=== PATIENT | female | born 1935 | race Caucasian/White ===

== ENCOUNTER 2021-04-21 18:05 | Observation (INO) | payer MEDICARE, OTHER ==
--- NOTE | 2021-04-21 18:35 | ED ---
General Adult HPI - General Chief complaint: Nausea/Vomiting/Diarrhea Stated complaint: Vomiting Time Seen by Provider: 04/21/21 18:18 Source: patient, EMS Mode of arrival: EMS Limitations: no limitations - History of Present Illness Initial comments: Dictation was produced using [employer] dictation software. please excuse any grammatical, word or spelling errors. Chief Complaint: 85-year-old female presents to the emergency department for weakness and altered mental status History of Present Illness: 85-year-old female she is a poor historian. She denies any medical history. She is brought here after being found at home feeling weak and sitting in her urine and stool. Patient states she's been vomiting since last night. She states she had a fever. EMS was called patient's parents emergency department. Patient has no complaints at the bedside currently. She denies any fever. She denies any pain. The ROS documented in this emergency department record has been reviewed and confirmed by me. Those systems with pertinent positive or negative responses have been documented in the HPI. All other systems are other negative and/or noncontributory. PHYSICAL EXAM: General Impression: Alert and oriented x3, not in acute distress HEENT: Normocephalic atraumatic, extra-ocular movements intact, pupils equal and reactive to light bilaterally, mucous membranes moist. Cardiovascular: Heart regular rate and rhythm Chest: Able to complete full sentences, no retractions, no tachypnea Abdomen: abdomen soft, non-tender, non-distended, no organomegaly Musculoskeletal: Pulses present and equal in all extremities, no peripheral edema Motor: no focal deficits noted Neurological: CN II-XII grossly intact, no focal motor or sensory deficits noted Skin: Intact with no visualized rashes Psych: Normal affect and mood ED course: 85-year-old female presents to the emergency department for altered mental status and fatigue. Patient reports she had a fever last night but feels fine at bedside. According to EMS family reports the patient is not acting right. Vital signs upon arrival are within acceptable limits. Patient has no focal neurologic deficits. She does appear to be encephalopathic. Slow answer questions. We do not know what patient's baseline mentation is at the moment. Laboratory evaluation obtained. CBC shows mild leukocytosis. Coag panel is unremarkable. Metabolic panel shows findings within acceptable limits. Magnesium slightly depressed at 1.5. Patient given oral magnesium oxide test. Urinalysis positive for nitrates. 2 white blood cells. COVID-19 is negative. Computed tomography scan of the brain is unremarkable. Patient treated 1 g of ceftriaxone. Patient exhibiting bizarre behavior is unclear what patient's baseline mentation is. We tried to get all the family however were unsuccessful. Phone number left and patient's chart was not answered. We tried to track down patient's son but unable to find his phone number. Today we'll have the disposition for this patient will have patient admitted to observation. Patient be admitted to [facility]. - Related Data Home Medications Medication Instructions Recorded Confirmed Cholecalciferol [Vitamin D3 (25 50 mcg PO DAILY 04/21/21 04/21/21 Mcg = 1000 Iu)] Cyanocobalamin [Vitamin B-12] 500 mcg PO DAILY 04/21/21 04/21/21 Allergies Allergy/AdvReac Type Severity Reaction Status Date / Time No Known Allergies Allergy Verified 04/21/21 18:58 Review of Systems ROS Statement: Those systems with pertinent positive or pertinent negative responses have been documented in the HPI. ROS Other: All systems not noted in ROS Statement are negative. Past Medical History Past Medical History: No Reported History History of Any Multi-Drug Resistant Organisms: None Reported Past Surgical History: Orthopedic Surgery Past Psychological History: No Psychological Hx Reported Past Alcohol Use History: None Reported Past Drug Use History: None Reported General Exam Limitations: no limitations Course Vital Signs 04/21/21 04/21/21 18:19 19:45 Temperature 96.9 F L Pulse Rate 89 86 Respiratory 18 18 Rate Blood Pressure 194/81 170/75 O2 Sat by Pulse 95 96 Oximetry Medical Decision Making - Lab Data Result diagrams: 04/21/21 18:40 04/21/21 18:40 Lab Results 04/21/21 04/21/21 04/21/21 Range/Units 18:40 18:40 18:40 WBC 13.3 H (3.8-10.6) k/uL RBC 4.54 (3.80-5.40) m/uL Hgb 14.4 (11.4-16.0) gm/dL Hct 43.1 (34.0-46.0) % MCV 95.1 (80.0-100.0) fL MCH 31.9 (25.0-35.0) pg MCHC 33.5 (31.0-37.0) g/dL RDW 12.8 (11.5-15.5) % Plt Count 246 (150-450) k/uL MPV 8.0 Neutrophils % 92 % Lymphocytes % 2 % Monocytes % 4 % Eosinophils % 1 % Basophils % 1 % Neutrophils # 12.2 H (1.3-7.7) k/uL Lymphocytes # 0.3 L (1.0-4.8) k/uL Monocytes # 0.5 (0-1.0) k/uL Eosinophils # 0.1 (0-0.7) k/uL Basophils # 0.1 (0-0.2) k/uL PT 9.7 (9.0-12.0) sec INR 0.9 (<1.2) APTT 22.4 (22.0-30.0) sec Sodium 135 L (137-145) mmol/L Potassium 4.8 (3.5-5.1) mmol/L Chloride 96 L (98-107) mmol/L Carbon Dioxide 26 (22-30) mmol/L Anion Gap 13 mmol/L BUN 22 H (7-17) mg/dL Creatinine 1.04 (0.52-1.04) mg/dL Est GFR (CKD-EPI)AfAm 57 (>60 ml/min/1.73 sqM) Est GFR (CKD-EPI)NonAf 49 (>60 ml/min/1.73 sqM) Glucose 151 H (74-99) mg/dL Plasma Lactic Acid Ryne (0.7-2.0) mmol/L Calcium 9.8 (8.4-10.2) mg/dL Magnesium 1.5 L (1.6-2.3) mg/dL Total Bilirubin 0.8 (0.2-1.3) mg/dL AST 23 (14-36) U/L ALT 13 (4-34) U/L Alkaline Phosphatase 92 (38-126) U/L Total Protein 8.7 H (6.3-8.2) g/dL Albumin 4.7 (3.5-5.0) g/dL Urine Color Urine Appearance (Clear) Urine pH (5.0-8.0) Ur Specific [place] (1.001-1.035) Urine Protein (Negative) Urine Glucose (UA) (Negative) Urine Ketones (Negative) Urine Blood (Negative) Urine Nitrite (Negative) Urine Bilirubin (Negative) Urine Urobilinogen (<2.0) mg/dL Ur Leukocyte Esterase (Negative) Urine RBC (0-5) /hpf Urine WBC (0-5) /hpf Amorphous Sediment (None) /hpf Urine Bacteria (None) /hpf Urine Mucus (None) /hpf Coronavirus (PCR) (Not Detectd) 04/21/21 04/21/21 04/21/21 Range/Units 18:40 18:40 19:32 WBC (3.8-10.6) k/uL RBC (3.80-5.40) m/uL Hgb (11.4-16.0) gm/dL Hct (34.0-46.0) % MCV (80.0-100.0) fL MCH (25.0-35.0) pg MCHC (31.0-37.0) g/dL RDW (11.5-15.5) % Plt Count (150-450) k/uL MPV Neutrophils % % Lymphocytes % % Monocytes % % Eosinophils % % Basophils % % Neutrophils # (1.3-7.7) k/uL Lymphocytes # (1.0-4.8) k/uL Monocytes # (0-1.0) k/uL Eosinophils # (0-0.7) k/uL Basophils # (0-0.2) k/uL PT (9.0-12.0) sec INR (<1.2) APTT (22.0-30.0) sec Sodium (137-145) mmol/L Potassium (3.5-5.1) mmol/L Chloride (98-107) mmol/L Carbon Dioxide (22-30) mmol/L Anion Gap mmol/L BUN (7-17) mg/dL Creatinine (0.52-1.04) mg/dL Est GFR (CKD-EPI)AfAm (>60 ml/min/1.73 sqM) Est GFR (CKD-EPI)NonAf (>60 ml/min/1.73 sqM) Glucose (74-99) mg/dL Plasma Lactic Acid Ryne 1.3 (0.7-2.0) mmol/L Calcium (8.4-10.2) mg/dL Magnesium (1.6-2.3) mg/dL Total Bilirubin (0.2-1.3) mg/dL AST (14-36) U/L ALT (4-34) U/L Alkaline Phosphatase (38-126) U/L Total Protein (6.3-8.2) g/dL Albumin (3.5-5.0) g/dL Urine Color Yellow Urine Appearance Clear (Clear) Urine pH 6.5 (5.0-8.0) Ur Specific [place] 1.014 (1.001-1.035) Urine Protein 1+ H (Negative) Urine Glucose (UA) Negative (Negative) Urine Ketones Negative (Negative) Urine Blood Small H (Negative) Urine Nitrite Positive H (Negative) Urine Bilirubin Negative (Negative) Urine Urobilinogen <2.0 (<2.0) mg/dL Ur Leukocyte Esterase Negative (Negative) Urine RBC 6 H (0-5) /hpf Urine WBC 2 (0-5) /hpf Amorphous Sediment Rare H (None) /hpf Urine Bacteria Many H (None) /hpf Urine Mucus Rare H (None) /hpf Coronavirus (PCR) Not Detected (Not Detectd) Disposition Clinical Impression: UTI (urinary tract infection), Encephalopathy Disposition: ADMITTED IP TO THIS [facility] Condition: Fair Referrals: None,Stated [Primary Care Provider] - 1-2 days
[2021-04-21 19:00] LABS: Basophils # (A) 0.1 k/uL (0-0.2); Basophils % (A) 1 %; Eosinophils # (A) 0.1 k/uL (0-0.7); Eosinophils % (A) 1 %; HCT 43.1 % (34.0-46.0); HGB 14.4 gm/dL (11.4-16.0); Lymphocytes # (A) 0.3 k/uL (1.0-4.8); Lymphocytes % (A) 2 %; MCH 31.9 pg (25.0-35.0); MCHC 33.5 g/dL (31.0-37.0); MCV 95.1 fL (80.0-100.0); Monocytes # (A) 0.5 k/uL (0-1.0); Monocytes % (A) 4 %; Neutrophils # (A) 12.2 k/uL (1.3-7.7); Neutrophils % (A) 92 %; Platelet Count 246 k/uL (150-450); RBC 4.54 m/uL (3.80-5.40); RDW 12.8 % (11.5-15.5); WBC 13.3 k/uL (3.8-10.6)
[2021-04-21 19:08] LABS: Potassium 4.8 mmol/L (3.5-5.1)
[2021-04-21 19:09] LABS: Albumin 4.7 g/dL (3.5-5.0); Calcium 9.8 mg/dL (8.4-10.2); Magnesium 1.5 mg/dL (1.6-2.3); Total Bilirubin 0.8 mg/dL (0.2-1.3); Total Protein 8.7 g/dL (6.3-8.2)
[2021-04-21 19:15] LABS: INR 0.9 (<1.2); Partial Thromboplastin Time 22.4 sec (22.0-30.0); Prothrombin Time 9.7 sec (9.0-12.0)
--- NOTE | 2021-04-21 19:32 | CT ---
EXAMINATION TYPE: CT brain wo con DATE OF EXAM: 04/21/2021 COMPARISON: None HISTORY: Altered mental status. TECHNIQUE: CT scan of the head performed without contrast CT DLP: 2460.4 mGycm Automated exposure control for dose reduction was used. FINDINGS: No acute intracranial hemorrhage midline shift or mass effect. Carson-white matter differentiation is p reserved. Patchy low-attenuation the deep white matter periventricular region likely on the basis of chronic mi crovascular ischemic changes. Prominent CSF spaces and ventricles likely on the basis of volume loss. Scattered foci of low attenuation in the bilateral basal ganglia and bilateral caudate heads and rig ht thalamus suggestive of remote lacunar infarct. Linear calcification in the region of the fourth ventricle and posterior to the josesito/medulla. Soft ti ssue axial reformats image 11. No acute intraorbital, osseous or soft tissue abnormalities seen. Atherosclerotic calcifications are seen in the intracranial internal carotid arteries and vertebrobas ilar arteries. Bubbly mucosal thickening in the right maxillary sinus. Small left inferior mastoid air cell effusion . IMPRESSION: 1. NO EVIDENCE FOR ACUTE INTRACRANIAL HEMORRHAGE MIDLINE SHIFT OR MASS EFFECT. 2. CHRONIC MICROVASCULAR ISCHEMIC CHANGES, LACUNAR INFARCTS AND VOLUME LOSS. 3. NONSPECIFIC LINEAR CALCIFICATIONS IN THE REGION OF THE FOURTH VENTRICLE POSTERIOR TO THE JOSESITO/MEDU LLA. 4. BUBBLY MUCOSAL THICKENING IN THE RIGHT MAXILLARY SINUS AND SMALL LEFT INFERIOR MASTOID AIR CELL EF FUSION. RECOMMENDATION: CONSIDER OBTAINING MRI OF THE BRAIN WITHOUT AND WITH CONTRAST, MAY BE PERFORMED ON NONURGENT BASIS.
[2021-04-21 19:42] LABS: Amorphous Sediment,Urine Rare /hpf; Appearance,Urine Clear (Clear); Bacteria,Urine Many /hpf; Bilirubin,Urine Negative (Negative); Blood,Urine Small (Negative); Color,Urine Yellow; Glucose,Urine (UA) Negative (Negative); Ketones,Urine Negative (Negative); Leukocyte Esterase,Urine Negative (Negative); Mucus,Urine Rare /hpf; Nitrite,Urine Positive (Negative); PH, Urine 6.5 (5.0-8.0); Protein,Urine 1+ (Negative); RBC,Urine 6 /hpf (0-5); Specific Gravity,Urine 1.014 (1.001-1.035); Urobilinogen,Urine <2.0 mg/dL (<2.0); WBC,Urine 2 /hpf (0-5)
[2021-04-21] MEDS ORDERED: MAGNESIUM OXIDE 400 MG TAB PO STA (19:44)
[2021-04-21] MEDS ORDERED: cefTRIAXone IN SWFI 1,000 MG/10 ML SYRINGE IVP STA (19:44)
--- NOTE | 2021-04-21 19:46 | XR ---
EXAMINATION TYPE: XR chest 1V portable DATE OF EXAM: 04/21/2021 COMPARISON: 02/12/2015 HISTORY: 85 years Female. STUDY INDICATION GIVEN: altered mental status . TECHNIQUE: AP upright chest radiograph IMPRESSION: Patchy retrocardiac opacities may be on the basis of atelectasis and/or left lower lobe infiltrate. COPD/emphysema changes with no significant change in appearance compared to prior. No pneumothorax or effusion appreciated. Prominent cardiac silhouette. Normal mediastinal silhouette. Atherosclerotic calcification seen in th e intrathoracic aorta. No acute osseous abnormalities. Generalized bony demineralization noted.
[2021-04-21] MEDS ORDERED: NALOXONE 0.4 MG/ML 1 ML VIAL IV PRN (20:25)
[2021-04-22] MEDS ORDERED: ONDANSETRON 4 MG/2 ML VIAL IVP PRN (03:41)
[2021-04-22] MEDS ORDERED: MAGNESIUM SULFATE-D5W PMX 1 GM in DEXTROSE/WATER 1 100ML.BAG IVPB ONE (03:41)
[2021-04-22] MEDS ORDERED: cloNIDine HCL 0.2 MG TAB PO PRN (03:41)
--- NOTE | 2021-04-22 03:46 | P.HPIM ---
History of Present Illness H&P Date: 04/21/21 Chief Complaint: AMS 85 year old female no reported history patient unable to provide any meaningful history , she denies any complaint. she feels cold and refuses to remove sheets and would like to be left alone and sleep patient brought in by EMS , after being found weak , altered confused, and soiled with stool and urine . no further history available family is not reachable at this time, the phone number provided is not working workup in ED, CT brain and CXR no acute pathology WBC elevated , Urine positive for nitrite, suggestive of UTI Mg low 1.5 COVID negative Review of Systems ROS unobtainable: due to mental status Past Medical History Past Medical History: No Reported History History of Any Multi-Drug Resistant Organisms: None Reported Past Surgical History: Orthopedic Surgery Past Psychological History: No Psychological Hx Reported Past Alcohol Use History: None Reported Past Drug Use History: None Reported - Past Family History family Family Medical History: No Reported History Medications and Allergies Home Medications Medication Instructions Recorded Confirmed Type Cholecalciferol [Vitamin D3 (25 50 mcg PO DAILY 04/21/21 04/21/21 History Mcg = 1000 Iu)] Cyanocobalamin [Vitamin B-12] 500 mcg PO DAILY 04/21/21 04/21/21 History Allergies Allergy/AdvReac Type Severity Reaction Status Date / Time No Known Allergies Allergy Verified 04/21/21 18:58 Physical Exam Vitals: Vital Signs Temp Pulse Resp BP Pulse Ox 04/21/21 19:45 86 18 170/75 96 04/21/21 18:19 96.9 F L 89 18 194/81 95 Intake and Output 04/21/21 04/21/21 04/21/21 06:59 14:59 22:59 Other: Weight 61.825 kg Constitutional: No acute distress, confused , unknown baseline Eyes: Anicteric sclerae, moist conjunctiva, Pupils equal round reactive to light ENMT: NC/AT Neck: Supple, no masses, or JVD No carotid bruits No thyromegaly Lungs: Clear to auscultation Clear to percussion Normal respiratory effort, no accessory muscle use Cardiovascular: Heart regular in rate and rhythm, No murmurs, gallops, or rubs No peripheral edema Abdominal: Soft Nontender, no guarding, rebound or rigidity Abdomen moving with respiration Normoactive bowel sounds No hepatomegaly, No splenomegaly No palpable mass No abdominal wall hernia noted Skin: Normal temperature, tone, texture, turgor No induration No subcutaneous nodules No rash, lesions No ulcers Extremities: No digital cyanosis No clubbing Pedal pulses intact and symmetrical Radial pulses intact and symmetrical No calf tenderness Psychiatric: Alert but confused Neuro unable to perform patient does not follow complex commands, moving all extremities . Lymphatics: no palpable cervical or supraclavicular lymph nodes Results CBC & Chem 7: 04/21/21 18:40 04/21/21 18:40 Labs: Abnormal Lab Results - Last 24 Hours (Table) 04/21/21 04/21/21 04/21/21 Range/Units 18:40 18:40 19:32 WBC 13.3 H (3.8-10.6) k/uL Neutrophils # 12.2 H (1.3-7.7) k/uL Lymphocytes # 0.3 L (1.0-4.8) k/uL Sodium 135 L (137-145) mmol/L Chloride 96 L (98-107) mmol/L BUN 22 H (7-17) mg/dL Glucose 151 H (74-99) mg/dL Magnesium 1.5 L (1.6-2.3) mg/dL Total Protein 8.7 H (6.3-8.2) g/dL Urine Protein 1+ H (Negative) Urine Blood Small H (Negative) Urine Nitrite Positive H (Negative) Urine RBC 6 H (0-5) /hpf Amorphous Sediment Rare H (None) /hpf Urine Bacteria Many H (None) /hpf Urine Mucus Rare H (None) /hpf Assessment and Plan Assessment: UTI acute metabolic encephalopathy possible dementia uncontrolled hypertension hypomagnesemia plan supportive care IVF hydration with normal saline fall precautions follow up cultures rocephine daily IVPB 1 gm replace Mg clonidine PRN PO for systolic blood pressure > 180 zofran for nausea PT eval possible placement full code anticipated length of stay < 2 midnights
[2021-04-22] MEDS: SODIUM CHLORIDE 0.9% 1,000 ML IV SCH ×2 (04:14→20:28)
--- NOTE | 2021-04-22 16:04 | P.PN ---
Subjective Patient was examined not very cooperative. She does have altered mentation was responding to deep stimuli including sternal rub. Patient is a poor historian we will try to obtain collateral information from family members if possible. Objective - Vital Signs Vital signs: Vital Signs Temp 98.1 F 04/22/21 14:21 Pulse 75 04/22/21 14:21 Resp 16 04/22/21 14:21 BP 125/44 04/22/21 14:21 Pulse Ox 96 04/22/21 14:21 Intake & Output 04/21/21 04/22/21 04/22/21 18:59 06:59 18:59 Weight 61.825 kg 61.825 kg Other: Voiding Method Diaper Diaper # Voids 1 - Exam Physical examination was very limited due to lack of patients cooperation. Response to sternal rub/deep stimuli Lungs: Clear to auscultation Clear to percussion Normal respiratory effort, no accessory muscle use Cardiovascular: Heart regular in rate and rhythm, No murmurs, gallops, or rubs No peripheral edema Psychiatry: Alert and confused - Labs CBC & Chem 7: 04/21/21 18:40 04/21/21 18:40 Labs: Abnormal Lab Results - Last 24 Hours (Table) 04/21/21 04/21/21 04/21/21 Range/Units 18:40 18:40 19:32 WBC 13.3 H (3.8-10.6) k/uL Neutrophils # 12.2 H (1.3-7.7) k/uL Lymphocytes # 0.3 L (1.0-4.8) k/uL Sodium 135 L (137-145) mmol/L Chloride 96 L (98-107) mmol/L BUN 22 H (7-17) mg/dL Glucose 151 H (74-99) mg/dL Magnesium 1.5 L (1.6-2.3) mg/dL Total Protein 8.7 H (6.3-8.2) g/dL Urine Protein 1+ H (Negative) Urine Blood Small H (Negative) Urine Nitrite Positive H (Negative) Urine RBC 6 H (0-5) /hpf Amorphous Sediment Rare H (None) /hpf Urine Bacteria Many H (None) /hpf Urine Mucus Rare H (None) /hpf Assessment and Plan Assessment: Assessment: #1 acute metabolic encephalopathy #2 urinary tract infection #3 possible dementia #4 essential hypertension Plan: -Admit to medicine for close monitoring -Aspiration/fall precaution/H of 8:30 -Computed tomography scan of the brain reviewed we'll appreciate recommendations from neurology regarding MRI if needed -Continue with IV Rocephin 1 g daily -Replace electro-lytes when necessary -PT/OT if mentation improves -Due to prophylaxis lovenox
[2021-04-22 16:26] LABS: Basophils # (A) 0.1 k/uL (0-0.2); Basophils % (A) 1 %; Eosinophils # (A) 0.1 k/uL (0-0.7); Eosinophils % (A) 1 %; HCT 38.8 % (34.0-46.0); HGB 12.6 gm/dL (11.4-16.0); Lymphocytes # (A) 0.8 k/uL (1.0-4.8); Lymphocytes % (A) 7 %; MCH 31.5 pg (25.0-35.0); MCHC 32.6 g/dL (31.0-37.0); MCV 96.6 fL (80.0-100.0); Monocytes # (A) 1.2 k/uL (0-1.0); Monocytes % (A) 10 %; Neutrophils # (A) 10.1 k/uL (1.3-7.7); Neutrophils % (A) 81 %; Platelet Count 211 k/uL (150-450); RBC 4.02 m/uL (3.80-5.40); RDW 12.5 % (11.5-15.5); WBC 12.5 k/uL (3.8-10.6)
[2021-04-22 16:39] LABS: African American GFR (CKD) 55 (>60 ml/min/1.73 sqM); Anion Gap 7 mmol/L; Blood Urea Nitrogen 26 mg/dL (7-17); Calcium 8.8 mg/dL (8.4-10.2); Carbon Dioxide 26 mmol/L (22-30); Chloride 101 mmol/L (98-107); Glucose 108 mg/dL (74-99); Non-African American GFR(CKD) 48 (>60 ml/min/1.73 sqM); Potassium 4.2 mmol/L (3.5-5.1); Sodium 134 mmol/L (137-145)
[2021-04-22 19:55] LABS: T4, Free (Free Thyroxine) 1.13 ng/dL (0.78-2.19)
[2021-04-23] MEDS: SODIUM CHLORIDE 0.9% 1,000 ML IV SCH ×2 (04:53→22:53)
[2021-04-23 05:52] LABS: Basophils # (A) 0.1 k/uL (0-0.2); Basophils % (A) 1 %; Eosinophils # (A) 0.2 k/uL (0-0.7); Eosinophils % (A) 2 %; HCT 41.8 % (34.0-46.0); HGB 13.1 gm/dL (11.4-16.0); Lymphocytes # (A) 1.1 k/uL (1.0-4.8); Lymphocytes % (A) 12 %; MCH 30.6 pg (25.0-35.0); MCHC 31.5 g/dL (31.0-37.0); MCV 97.1 fL (80.0-100.0); Mean Platelet Volume 8.1; Monocytes # (A) 0.9 k/uL (0-1.0); Monocytes % (A) 9 %; Neutrophils # (A) 7.3 k/uL (1.3-7.7); Neutrophils % (A) 75 %; Platelet Count 229 k/uL (150-450); RDW 12.9 % (11.5-15.5); WBC 9.7 k/uL (3.8-10.6)
[2021-04-23 06:06] LABS: African American GFR (CKD) 57 (>60 ml/min/1.73 sqM); Anion Gap 4 mmol/L; Blood Urea Nitrogen 23 mg/dL (7-17); Calcium 8.7 mg/dL (8.4-10.2); Carbon Dioxide 26 mmol/L (22-30); Chloride 107 mmol/L (98-107); Glucose 99 mg/dL (74-99); Magnesium 2.2 mg/dL (1.6-2.3); Non-African American GFR(CKD) 49 (>60 ml/min/1.73 sqM); Potassium 3.9 mmol/L (3.5-5.1); Sodium 137 mmol/L (137-145)
[2021-04-23] MEDS: ENOXAPARIN 40 MG/0.4 ML SYRINGE SQ SCH (09:40)
--- NOTE | 2021-04-23 15:29 | P.PN ---
Subjective Patient was examined about that today she is more awake alert oriented 3 today. Mentation is improved drastically compared with last 24 hours. She denies any dysuria, urgency or frequency at this time. Objective - Vital Signs Vital signs: Vital Signs Temp 98.7 F 04/23/21 14:37 Pulse 73 04/23/21 14:37 Resp 18 04/23/21 14:37 BP 171/79 04/23/21 14:37 Pulse Ox 96 04/23/21 14:37 Intake & Output 04/22/21 04/23/21 04/23/21 18:59 06:59 18:59 Intake Total 60 900 60 Balance 60 900 60 Intake: Intake, IV Titration 900 Amount Sodium Chloride 0.9% 1, 900 000 ml @ 75 mls/hr IV . [id number] [facility] Rx#:[id number] Oral 60 60 Other: Voiding Method Diaper Toilet Toilet Diaper Diaper # Voids 2 2 3 - Exam General: Patient is awake alert oriented and not in any acute distress Cardio: Normal S1/S2 heart sounds appreciated no murmurs respiratory "no wheezing or rhonchi appreciated neuro : She is more awake alert oriented 3 abdomen: Soft nontender positive bowel sounds - Labs CBC & Chem 7: 04/23/21 04:53 04/23/21 04:53 Labs: Abnormal Lab Results - Last 24 Hours (Table) 04/22/21 04/22/21 04/23/21 Range/Units 16:06 16:06 04:53 WBC 12.5 H (3.8-10.6) k/uL Neutrophils # 10.1 H (1.3-7.7) k/uL Lymphocytes # 0.8 L (1.0-4.8) k/uL Monocytes # 1.2 H (0-1.0) k/uL Sodium 134 L (137-145) mmol/L BUN 26 H 23 H (7-17) mg/dL Creatinine 1.07 H (0.52-1.04) mg/dL Glucose 108 H (74-99) mg/dL TSH 0.417 L (0.465-4.680) mIU/L Microbiology - Last 24 Hours (Table) 04/23/21 04:40 Urine Culture - Preliminary Urine,Clean Catch Assessment and Plan Assessment: Assessment: #1 acute metabolic encephalopathy #2 urinary tract infection #3 possible dementia #4 essential hypertension Plan: -Admit to medicine for close monitoring, patient is awake alert oriented 3 mentation improved compared to yesterday. -Aspiration/fall precaution/H of 8:30 -Computed tomography scan of the brain reviewed we'll appreciate recommendations from neurology regarding MRI if needed -Continue with IV Rocephin 1 g daily and follow microbiology -Replace electro-lytes when necessary -PT/OT -Due to prophylaxis lovenox
[2021-04-24 09:03] VITALS: RESP 18
--- NOTE | 2021-04-24 09:11 | MR ---
MRI brain without contrast. HISTORY: CVA. COMPARISON: None. TECHNIQUE: Multiecho multiplanar images the brain were obtained without contrast. FINDINGS: On the T1-weighted sagittal images midline structures including the craniovertebral junction relation ships are normal. A second diffusion-weighted imaging there is no acute event. There is moderate to marked diffuse abnormal increased signal intensity in the periventricular white matter both cerebral hemispheres and within the brainstem consistent with chronic ischemic change. Th ere are tiny remote lacunar infarcts in the right caudate nucleus and right thalamus. The ventricles, basal cisterns and sulci over convexities are moderately enlarged consistent with mod erate generalized atrophy but appropriate for the patient's age. There are marked chronic and acute inflammatory changes in the right maxillary sinus and there are in flammatory changes in the left mastoid air cells as well. The intraorbital contents appear normal and symmetric. The posterior fossa including the brainstem, fourth ventricle and cerebellar pontine angles appear no rmal. IMPRESSION: 1. No acute ischemic event. 2. Moderate generalized atrophy appropriate for the patient's age. 3. Marked chronic ischemic changes as described above. 4. No mass effect or shift of midline structures.
--- NOTE | 2021-04-24 09:13 | P.CNNES ---
History of Present Illness Consult date: 04/23/21 Requesting physician: Bam Can Reason for Consult: Altered mental status History of Present Illness: Patient is a 85-year-old female came to the hospital by ambulance yesterday at 6:19 PM. EMS flow sheet not available in the chart. Patient states that she came to the hospital because of urinary tract infection and she was throwing up a lot. Patient denies any headache or any problem with the vision, numbness ti ngling focal weakness or paralysis. Patient states that she has always been healthy, never got sick and does not take any medication. She states that her son brought her here. I spoke to patient's son Mickey on the phone. He mentioned that he called the ambulance because when he went to check on her, she has thrown up all over the place and she was "out of it". She was responsive but not completely. Patient's sister has been present since the morning, and she did not need to her sister was present. Patient's son also states that she was laying on the loveseat and has peed on herself and thrown up. Patient lives by herself, and he states that she is self-sufficient. He states that patient's sister checked on her twice that day because she did not look well. Patient's altered mental status had been present since the midnight earlier in the morning. Patient as well as her son denies any history of seizures in the past. No history of strokes or TIA. Vital signs on arrival blood pressure 194/81, pulse 89, temperature 96.9. Then went up to 99.3 axillary, but subsequently he is afebrile. Blood test shows the BBC 13.3 hemoglobin 14.4, platelets 246. PT/PTT normal, sodium 135 potassium 4.8, BUN 22, creatinine 1.04. Hepatic panel normal, TSH is mildly decreased 0.417 with normal free T4 of 1.13. UA shows small blood, positive nitrite and 2 WBC. Ross virus PCR negative. Computed tomography scan of the head showed no evidence for acute intracranial hemorrhage and midline shift or mass effect. Chronic microvascular ischemic changes, lacunar infarcts and volume loss. Nonspecific linear calcification in the region of the fourth ventricle posterior to the Shoaib/Medulla. Bubbly mucosal thickening in the right maxillary sinus and small left inferior mastoid air cell effusion. Recommend MRI of the brain. I personally reviewed computed tomography scan of the head on the computer. There is some age-related changes, moderate small vessel disease, old lacune in the left lateral basal ganglia. The calcification mentioned above appears physiologic. Chest x-ray showed no acute osseous abnormalities, generalized bony demineralization noted. EKG with normal sinus rhythm, moderate voltage criteria for LVH. Patient admits to smoking one pack per day for 60 years. Denies any alcohol. Denies diabetes. At present she is feeling perfectly well and wants to go home. Review of Systems As mentioned in HPI. All other 14 points of review of systems reviewed and completely unremarkable. Past Medical History Past Medical History: No Reported History Additional Past Medical History / Comment(s): possible liver and kidney disease; pt does not see a doctor. History of Any Multi-Drug Resistant Organisms: None Reported Past Surgical History: Orthopedic Surgery Past Anesthesia/Blood Transfusion Reactions: No Reported Reaction Past Psychological History: No Psychological Hx Reported Past Alcohol Use History: None Reported Past Drug Use History: None Reported - Past Family History family Family Medical History: No Reported History Medications and Allergies Home Medications Medication Instructions Recorded Confirmed Type Cholecalciferol [Vitamin D3 (25 50 mcg PO DAILY 04/21/21 04/21/21 History Mcg = 1000 Iu)] Cyanocobalamin [Vitamin B-12] 500 mcg PO DAILY 04/21/21 04/21/21 History Allergies Allergy/AdvReac Type Severity Reaction Status Date / Time No Known Allergies Allergy Verified 04/21/21 18:58 Physical Examination - Vital Signs Vital Signs: Vital Signs Temp Pulse Resp BP Pulse Ox 04/23/21 07:00 97.5 F L 73 16 162/78 97 04/23/21 03:31 96 04/23/21 02:00 97.6 F 96 16 151/68 96 04/22/21 19:29 98.3 F 72 14 135/63 94 L 04/22/21 14:21 98.1 F 75 16 125/44 96 Intake and Output 04/22/21 04/23/21 04/23/21 22:59 06:59 14:59 Intake Total 60 900 Balance 60 900 Intake: Intake, IV Titration 900 Amount Sodium Chloride 0.9% 1, 900 000 ml @ 75 mls/hr IV . [id number] Rx#:[id number] Oral 60 Other: Voiding Method Toilet Toilet Diaper Diaper # Voids 1 2 Patient is an elderly female, in no acute distress. Patient is alert awake oriented to time place and person. She knows it is March and the year is 2021 and that she is in [facility]. She knows name of the current president. Speech and language fu nctions are normal. No aphasia, although there could be mild dysarthria. Patient can name and repeat very well. She does have slightly hoarse voice. Attention, concentration and fund of knowledge is adequate. On cranial examination, pupils are equal, round and reacting to light, visual lagunas are full on confrontation, extraocular muscles are intact with no nystagmus. Face is symmetric, tongue protrudes to the midline. Palatal elevation and sensation normal, hearing and shoulder shrug normal, facial sensation normal. Shoulder shrug normal. On muscle strength testing, there is no pronator drift and the strength is normal in arms and legs distally and proximally. Deep tendon reflexes are 1+ in the upper limbs, 1 in the lower limbs and plantars downgoing bilaterally. Sensory to touch is equal with no neglect. Cerebellar function showed no ataxia for [id number] testing. No d ysdiadochokinesia. Tone and bulk of muscles normal. Gait deferred. On general examination, there is no carotid bruit or murmur, S1-S2 audible. Abdomen is soft nontender. Bowel sounds present. No organomegaly. Chest is clear. Peripheral pulses are present. No edema. Results - Laboratory Findings CBC and BMP: 04/23/21 04:53 04/23/21 04:53 Abnormal Lab Findings: Abnormal Labs 04/21/21 04/21/21 04/21/21 18:40 18:40 19:32 WBC 13.3 H Neutrophils # 12.2 H Lymphocytes # 0.3 L Monocytes # Sodium 135 L Chloride 96 L BUN 22 H Creatinine Glucose 151 H Magnesium 1.5 L Total Protein 8.7 H TSH Urine Protein 1+ H Urine Blood Small H Urine Nitrite Positive H Urine RBC 6 H Amorphous Sediment Rare H Urine Bacteria Many H Urine Mucus Rare H 04/22/21 04/22/21 04/23/21 16:06 16:06 04:53 WBC 12.5 H Neutrophils # 10.1 H Lymphocytes # 0.8 L Monocytes # 1.2 H Sodium 134 L Chloride BUN 26 H 23 H Creatinine 1.07 H Glucose 108 H Magnesium Total Protein TSH 0.417 L Urine Protein Urine Blood Urine Nitrite Urine RBC Amorphous Sediment Urine Bacteria Urine Mucus Assessment and Plan Assessment: * 85-year-old female admitted with altered mental status, profuse throwing, unclear etiology. Transient encephalopathy from UTI also a possibility. Rule out stroke TIA. Patient does have mild slurred speech. * Tobacco use * Hypertension * UTI on ceftriaxone. Plan: * MRI of the brain evaluate for an acute stroke. * Carotid Doppler to rule out stenosis. * Lipid panel. * Treatment of high blood pressure as per IM. * Patient currently on Rocephin for UTI. * Consider aspirin 81 mg daily for stroke prevention. * Recommend complete tobacco cessation. * Discussed with patient's son in detail. * We will follow. Thank you for the consult.
[2021-04-24] MEDS: ENOXAPARIN 40 MG/0.4 ML SYRINGE SQ SCH (09:54)
[2021-04-24] MEDS: SODIUM CHLORIDE 0.9% 1,000 ML IV SCH (09:54)
--- NOTE | 2021-04-24 10:20 | US ---
EXAMINATION TYPE: US carotid duplex BILAT DATE OF EXAM: 04/24/2021 COMPARISON: MRI CLINICAL HISTORY: AMS, ?TIA. Altered mental status with UTI, encephelopathy, smoker x 50 years EXAM MEASUREMENTS: RIGHT: Peak Systolic Velocity (PSV) cm/sec ----- Right CCA: 48.3 ----- Right ICA: 115.7 ----- Right ECA: 311.5 ICA/CCA ratio: 2.4 RIGHT: End Diastole cm/sec ----- Right CCA: 9.8 ----- Right ICA: 18.7 ----- Right ECA: 7.3 LEFT: Peak Systolic Velocity (PSV) cm/sec ----- Left CCA: 61.1 ----- Left ICA: 103.0 ----- Left ECA: 164.1 ICA/CCA ratio: 1.7 LEFT: End Diastole cm/sec ----- Left CCA: 11.7 ----- Left ICA: 18.9 ----- Left ECA: 12.3 VERTEBRALS (direction of flow): Right Vertebral: Antegrade Left Vertebral: Antegrade Rhythm: Arrhythmia Moderate, irregular and mixed plaque is noted in bilateral carotid bifurcation with abnormally elevat ed PSV in Bilateral ECA IMPRESSION: Moderate irregular plaque of the carotid bifurcations bilaterally resulting in no signif icant left carotid stenosis and mild, less than 50% right carotid stenosis. Criteria for Assigning % of Stenosis / Diameter reduction (Estimation based on the indirect measurements of the internal carotid artery velocities (ICA PSV). 1. Normal (no stenosis)=ICA PSV < 125 cm/s: ratio < 2.0: ICA EDV<40 cm/s. 2. Less than 50% stenosis=ICA PSV < 125 cm/s: ratio < 2.0: ICA EDV<40 cm/s. 3. 50 to 69% stenosis=ICA PSV of 125 to 230 cm/s: ration 2.0 ? 4.0: ICA EDV 40-100 cm/s. 4. Greater than 70% stenosis to near occlusion= ICA PSV > 230 cm/s: ratio > 4.0: ICA EDV > 100 cm/s. 5. Near occlusion= ICA PSV velocities may be low or undetectable: variable ratio and ICA EDV. 6. Total occlusion=unable to detect flow.
[2021-04-24] MEDS ORDERED: ASPIRIN 81 MG PO SCH (12:15)
[2021-04-24 13:21] LABS: Chol/HDL Ratio 3.33 Ratio; LDL Cholesterol,Calculated 94.4 mg/dL (0.0-131.0)
--- NOTE | 2021-04-24 14:11 | P.DS ---
Providers Date of admission: 04/21/21 20:25 Expected date of discharge: 04/24/21 Attending physician: Hemant Marcus MD Consults: 04/22/21 15:56 Consult Physician Routine Consulting Provider: Rush Lai Consult Reason/Comments: AMS Do you want consulting provider notified?: Yes Primary care physician: Stated None Hospital Course: Patient is a 85-year-old female with a past medical history significant for essential hypertension that presents to the hospital secondary to altered mental status. Computed tomography scan of the brain and x-ray were completed which were unremarkable. Patient's urinalysis was suggestive of possible urinary tract infection was appropriately started on IV Rocephin. During the hospital course she recovered uneventfully. She is awake alert oriented 3 and wants to be discharged home. She is not interested in receiving any further help including subacute rehab. Neurology was also consult for possible subacute/acute stroke which was negative and carotid ultrasound was also completed as per their service which was negative. The patient is okay for discharge from neurology's perspective as well as internal medicine. She is asked to follow with neurology and PCP within 1 week of discharge. Patient did complete 3 days of IV antibiotics. We'll send ceftin to complete 2 more days. 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 General: Patient is awake alert oriented 3 Respiratory: No wheezing or rhonchi appreciated Cardiology: Normal S1/S2 Neurologic: Awake alert oriented 3, no neurology deficits noted Psychiatry alert and oriented and anxious to be discharged today. Patient Condition at Discharge: Fair Plan - Discharge Summary Discharge Rx Participant: Yes New Discharge Prescriptions: New Aspirin 81 mg PO DAILY 30 Days #30 Cefuroxime Axetil [Ceftin] 500 mg PO BID 2 Days #4 tab Continue Cyanocobalamin [Vitamin B-12] 500 mcg PO DAILY Cholecalciferol [Vitamin D3 (25 Mcg = 1000 Iu)] 50 mcg PO DAILY Discharge Medication List Cholecalciferol [Vitamin D3 (25 Mcg = 1000 Iu)] 50 mcg PO DAILY 04/21/21 [History] Cyanocobalamin [Vitamin B-12] 500 mcg PO DAILY 04/21/21 [History] Aspirin 81 mg PO DAILY 30 Days #30 04/24/21 [Rx] Cefuroxime Axetil [Ceftin] 500 mg PO BID 2 Days #4 tab 04/24/21 [Rx] Follow up Appointment(s)/Referral(s): None,Stated [Primary Care Provider] - 1-2 days Rush Lai MD [STAFF PHYSICIAN] - 1 Week
[2021-04-24 15:10] VITALS: BP 173/77; PULSE 74; TEMP 98.5
--- NOTE | 2021-04-24 17:16 | P.PN ---
Subjective Progress Note Date: 04/24/21 This is a Tele-neurology followup performed today on 04/24/2021. Patient is laying comfortably in the bed. Offers no complaints. No headache. Objective - Vital Signs Vital signs: Vital Signs Temp 97.6 F 04/24/21 07:00 Pulse 78 04/24/21 07:00 Resp 18 04/24/21 07:00 BP 166/75 04/24/21 07:00 Pulse Ox 97 04/24/21 07:00 Intake & Output 04/23/21 04/24/21 04/24/21 18:59 06:59 18:59 Intake Total 60 1450 Balance 60 1450 Intake: Intake, IV Titration 750 Amount Sodium Chloride 0.9% 1, 600 000 ml @ 75 mls/hr IV . [id number] [facility] Rx#:[id number] cefTRIAXone 1 gm In 150 Sodium Chloride 0.9% 50 ml @ 100 mls/hr IVPB Q24H [facility] Rx#:[id number] Oral 60 700 Other: Voiding Method Toilet Toilet Toilet Diaper Diaper Diaper # Voids 3 6 - Exam Patient's mental status is intact. Her speech is slightly dysarthric. No aphasia. There is some hoarseness of the voice as well. Her blood pressure is 166/75. Patient knows it is March and the year is 2021. Patient knows it is [facility]. Her face is symmetric and tongue protrudes to the midline. Visual lagunas are full. Muscle strength is normal. No pronator drift. Sensations equal. - Labs CBC & Chem 7: 04/23/21 04:53 04/23/21 04:53 Labs: Microbiology - Last 24 Hours (Table) 04/23/21 04:40 Urine Culture - Final Urine,Clean Catch Assessment and Plan Assessment: * 85-year-old female admitted with altered mental status, profuse throwing, unclear etiology. Transient encephalopathy from UTI also a possibility. Rule out stroke TIA. Patient does have mild slurred speech. * Tobacco use * Hypertension * UTI on ceftriaxone. Plan: * MRI of the brain was performed, which revealed no acute ischemic event. Moderate generalized atrophy, marked chronic ischemic changes. I personally reviewed MRI, and agree with the findings. No acute infarct. * Carotid Doppler was performed and showed moderate irregular plaque of the carotid bifurcation bilaterally resulting in no significant left carotid stenosis and mild, less than 50% right carotid stenosis. * Lipid panel with cholesterol 165, LDL 94, HDL 49 and triglycerides 105. Lipids are well controlled. * Treatment of high blood pressure as per IM. * Patient currently on Rocephin for UTI. * Start aspirin 81 mg daily for stroke prevention. * Recommend complete tobacco cessation. * Neurologically clear for discharge.
== END 2021-04-24 16:49 | disposition home or self-care (01) ==
LOC: EC 18:05 → 1SOBS 20:25 → 6NMEDSUR 21:38 → 4SSUR 23:18
PROVIDERS: ADMIT Internal Medicine; ATTEND Internal Medicine
DX: N39.0 Urinary tract infection, site not specified (principal); G93.41 Metabolic encephalopathy; I10 Essential (primary) hypertension; E83.42 Hypomagnesemia; Z20.822 Contact with and (suspected) exposure to COVID-19; F17.210 Nicotine dependence, cigarettes, uncomplicated; I65.22 Occlusion and stenosis of left carotid artery; R19.7 Diarrhea, unspecified; Z71.6 Tobacco abuse counseling; R11.2 Nausea with vomiting, unspecified; Z98.890 Other specified postprocedural states; Z71.89 Other specified counseling
CPT/HCPCS: 99285; 96361 ×2; 96365; 96366 ×2; 96367; 96372 ×2; 96376; 36415; 93005; 97116; 97161; 97535; 97165; 84439; 80061; 80053; 80048 ×2; 84443; 83605; 83735 ×3; 85025 ×3; 85610; 85730; 81001; 87086; 87635; 71045; 93880; 70450; 70551; G0378 ×4; J1650 ×2; J0696 ×3; J3475

== ENCOUNTER 2021-04-29 13:42 | Emergency (ER) | payer MEDICARE, OTHER ==
[2021-04-29 14:22] VITALS: TEMP 98.1
[2021-04-29 14:23] VITALS: BP 234/120; PULSE 98; RESP 12
[2021-04-29] MEDS ORDERED: lisinopriL 10 MG TAB PO STA (14:42)
--- NOTE | 2021-04-29 14:45 | ED ---
General Adult HPI - General Chief complaint: Wound/Laceration Stated complaint: Fall/Rt Arm Lac Time Seen by Provider: 04/29/21 14:01 Source: patient, RN notes reviewed Mode of arrival: ambulatory Limitations: no limitations - History of Present Illness Initial comments: 85-year-old female presents emergency Department chief complaint of a skin tear to her right arm. She states that she slipped cutting her arm on the door. She had no injury otherwise. She states it is swollen she does take aspirin daily. Patient states she is recently hospital states that she has a history of hypertension though she did not take any medications today states that she wasn't given a prescription. She states she is asymptomatic denies headache dizziness blurred vision dizziness chest pain shortness breath abdominal pain back pain. - Related Data Home Medications Medication Instructions Recorded Confirmed Cholecalciferol [Vitamin D3 (25 50 mcg PO DAILY 04/21/21 04/21/21 Mcg = 1000 Iu)] Cyanocobalamin [Vitamin B-12] 500 mcg PO DAILY 04/21/21 04/21/21 Previous Rx's Medication Instructions Recorded Aspirin 81 mg PO DAILY 30 Days #30 04/24/21 Cefuroxime Axetil [Ceftin] 500 mg PO BID 2 Days #4 tab 04/24/21 Allergies Allergy/AdvReac Type Severity Reaction Status Date / Time No Known Allergies Allergy Verified 04/29/21 13:45 Review of Systems ROS Statement: Those systems with pertinent positive or pertinent negative responses have been documented in the HPI. ROS Other: All systems not noted in ROS Statement are negative. Past Medical History Past Medical History: Hypertension Additional Past Medical History / Comment(s): possible liver and kidney disease; pt does not see a doctor. History of Any Multi-Drug Resistant Organisms: None Reported Past Surgical History: Orthopedic Surgery Past Anesthesia/Blood Transfusion Reactions: No Reported Reaction Past Psychological History: No Psychological Hx Reported Smoking Status: Former smoker Past Alcohol Use History: None Reported Past Drug Use History: None Reported - Past Family History family Family Medical History: No Reported History General Exam Limitations: no limitations General appearance: alert, in no apparent distress Head exam: Present: atraumatic, normocephalic, normal inspection Eye exam: Present: normal appearance, PERRL, EOMI. Absent: scleral icterus, conjunctival injection, periorbital swelling ENT exam: Present: normal exam, mucous membranes moist Neck exam: Present: normal inspection, full ROM. Absent: tenderness, meningismu s, lymphadenopathy Respiratory exam: Present: normal lung sounds bilaterally. Absent: respiratory distress, wheezes, rales, rhonchi, stridor Cardiovascular Exam: Present: regular rate, normal rhythm, normal heart sounds. Absent: systolic murmur, diastolic murmur, rubs, gallop, clicks Extremities exam: Present: other (Right arm there are for skin tears noted, there is a large hematoma associated patient has equal radial pulses, cap refill less than 2 seconds patient's full range of motion and is nontender.) Course Vital Signs 04/29/21 04/29/21 13:45 14:17 Temperature 97.8 F 98.1 F Pulse Rate 109 H 98 Respiratory 20 12 Rate Blood Pressure 216/87 234/120 O2 Sat by Pulse 99 97 Oximetry Procedures - Procedures Initial comment: Right arm 4 skin tears are noted they were cleaned with saline, skin was pulled across the wound and Steri-Strips were applied Disposition Clinical Impression: Traumatic hematoma of right forearm, Skin tear of right forearm without complication, Asymptomatic hypertension Disposition: HOME SELF-CARE Condition: Stable Instructions (If sedation given, give patient instructions): Skin Tear (ED) Additional Instructions: Please return to the Emergency Department if symptoms worsen or any other conc erns. Is patient prescribed a controlled substance at d/c from ED?: No Referrals: None,Stated [Primary Care Provider] - 1-2 days Time of Disposition: 14:45
== END 2021-04-29 15:11 | disposition home or self-care (01) ==
LOC: EC 13:42
DX: S51.811A Laceration without foreign body of right forearm, initial encounter (principal); I10 Essential (primary) hypertension; Z87.891 Personal history of nicotine dependence; Z79.82 Long term (current) use of aspirin; W01.0XXA Fall on same level from slipping, tripping and stumbling without subsequent striking against object, initial encounter
CPT/HCPCS: 99283

== ENCOUNTER → 2021-11-01 | Outpatient (CLI) | payer MEDICARE, OTHER ==
--- NOTE | 2021-11-01 12:28 | XR ---
EXAMINATION TYPE: XR lumbar spine 2 or 3V DATE OF EXAM: 11/01/2021 COMPARISON: None HISTORY: Sciatica right side TECHNIQUE: 3 view lumbar spine FINDINGS: There is a scoliosis present with convexity to the right centered at L2-3. Disc space hong es are present with vacuum disc phenomenon noted L2-3 and L5-S1. Additional disc space narrowing is p resent L3-4 L4-5. IMPRESSION: 1. Scoliosis with degenerative changes of the lumbar spine
== END | disposition home or self-care (01) ==
LOC: RADXRMAIN 09:52
PROVIDERS: ATTEND Nurse Practitioner Family
DX: M47.26 Other spondylosis with radiculopathy, lumbar region (principal)
CPT/HCPCS: 72100

== ENCOUNTER → 2021-12-13 | Outpatient (CLI) | payer MEDICARE, OTHER ==
--- NOTE | 2021-12-13 19:28 | BD ---
EXAMINATION TYPE: Axial Bone Density DATE OF EXAM: 12/13/2021 COMPARISON: NONE CLINICAL HISTORY: 86 years year old Female. ICD-10 CODE: Z13.820 SCREENING FOR OSTEOPOROSIS Height: 65 Weight: 119.1 FRAX RISK QUESTIONS: Alcohol (3 or more units per day): NO Family History (Parent hip fracture): NO Glucocorticoids (More than 3mos): NO History of Fracture in Adulthood: NO Secondary Osteoporosis: 1. Type 1 Diabetes: NO 2. Hyperthyroidism: NO 3. Menopause before 45: NO 4. Malnutrition: NO 5. Chronic liver disease: NO Rheumatoid Arthritis: NO Current Tobacco Use: STOPPED 10 DAYS AGO RISK FACTORS HISTORY OF: Hip Fracture (Right/Left): NO Spine Fracture: NO History of Wrist Fracture: NO Surgery to Spine/Hip(right/left)/Wrist (right/left): NO Family History of Osteoporosis: NO Active: NO Diet low in dairy products/other sources of calcium: YES Postmenopausal woman: YES Take estrogen and/or progesterone medications: NO Lost more than 2 inches in height since high school: YES Frequent falls: YES Poor Health: YES Hyperparathyroidism: NO Adrenal Insufficiency: NO MEDICATIONS: Prednisone or other steroids: NO Thyroid Medications: NO Osteoporosis Medications: NO Additional Medications: BP MEDS, VIT D, EXAM MEASUREMENTS: Bone mineral densitometry was performed using the [employer] System. Bone mineral density as measured about the Lumbar spine is: ----- L1-L4(G/cm2): 1.172 T Score Values are as follows: ----- L1: 0.2 ----- L2: -1.2 ----- L3: 0.1 ----- L4: 0.4 ----- L1-L4: -0.1 BASELINE STUDY Bone mineral density about the R hip (g/cm2): 0.714 Bone mineral density about the L hip (g/cm2): 0.699 T Score values are as follows: -----R Neck: -2.3 -----L Neck: -2.4 -----R Total: -2.1 -----L Total: -2.3 BASELINE STUDY FRAX%s: The graph provided illustrates a 15.3% chance for a major osteoporotic fx and a 8.2% chance f or the hips probability for fx in 10 years time. IMPRESSION: Osteopenia (T Score between -2.5 and -1). Note that measurements are approaching osteoporosis at the hips. There is slightly increased risk of fracture and the patient may be considered for treatment. Re-Screen 2-5 years. NOTE: T-SCORE=SD OF THE YOUNG ADULT MEAN.
== END | disposition home or self-care (01) ==
LOC: RADBDWWP 14:56
PROVIDERS: ATTEND Family Medicine
DX: Z13.820 Encounter for screening for osteoporosis (principal); M85.89 Other specified disorders of bone density and structure, multiple sites
CPT/HCPCS: 77080

== ENCOUNTER → 2023-06-30 | Outpatient (CLI) | payer MEDICARE, OTHER ==
[2023-06-30 15:45] LABS: Basophils # (A) 0.11 X 10*3/uL (0.00-0.10); Basophils % (A) 1.2 %; Eosinophils # (A) 0.75 X 10*3/uL (0.04-0.35); HCT 38.8 % (37.2-46.3); Lymphocytes # (A) 1.19 X 10*3/uL (0.90-5.00); Lymphocytes % (A) 12.6 %; MCH 30.9 pg (27.0-32.0); MCHC 30.9 g/dL (32.0-37.0); Mean Platelet Volume 11.8 FL (9.5-12.2); Monocytes # (A) 0.99 X 10*3/uL (0.20-1.00); Monocytes % (A) 10.5 %; NRBC Per 100 WBC 0 X 10*3/uL (0.00-0.01); Neutrophils # (A) 6.35 X 10*3/uL (1.80-7.70); Neutrophils % (A) 67.3 %; Platelet Count 336 X 10*3/uL (140-440); RBC 3.88 X 10*6/uL (4.10-5.20); RDW 13.4 % (11.5-14.5); WBC 9.43 X 10*3/uL (4.50-10.00)
[2023-06-30 15:59] LABS: ALT 7 U/L (8-44); AST 13 U/L (13-35); Albumin 4.4 g/dL (3.8-4.9); Albumin/Globulin Ratio 1.47 Ratio (1.60-3.17); Alkaline Phosphatase 78 U/L (41-126); BUN/Creat Ratio 12.62 Ratio (12.00-20.00); Bilirubin, Conjugated <0.20 mg/dL (0.20-0.40); Bilirubin,Unconjugated >0 mg/dL (0.20-1.00); Blood Urea Nitrogen 16.4 mg/dL (9.0-27.0); Calcium 9.8 mg/dL (8.7-10.3); Carbon Dioxide 19.7 mmol/L (21.6-31.8); Chloride 101 mmol/L (96-109); Chol/HDL Ratio 3.01 Ratio; Glucose 140 mg/dL (70-110); LDL Cholesterol,Calculated 114.4 mg/dL (0.0-131.0); Potassium 4.4 mmol/L (3.5-5.5); Sodium 136 mmol/L (135-145); Total Bilirubin 0.2 mg/dL (0.3-1.2); Total Protein 7.4 g/dL (6.2-8.2)
[2023-06-30 16:39] LABS: T4, Free (Free Thyroxine) 1.04 ng/dL (0.80-1.80)
== END | disposition home or self-care (01) ==
LOC: LABWHC1 08:10
PROVIDERS: ATTEND Family Medicine
DX: Z00.01 Encounter for general adult medical examination with abnormal findings (principal); I10 Essential (primary) hypertension
CPT/HCPCS: 36415; 80048; 80061; 80076; 84439; 84443; 84481; 85025

== ENCOUNTER → 2024-09-24 | Outpatient (CLI) | payer MEDICARE, OTHER ==
--- NOTE | 2024-09-24 14:32 | US ---
EXAMINATION TYPE: US kidneys/renal and bladder DATE OF EXAM: 09/24/2024 COMPARISON: NONE CLINICAL INDICATION: Female, 89 years old with history of N18.32 CHRONIC KIDNEY DISEASE, STAGE 3B; CK D TECHNIQUE: Grayscale imaging of the bilateral kidneys and urinary bladder: FINDINGS: EXAM MEASUREMENTS: Right Kidney: 6.9 x 3.8 x 3.1 cm Left Kidney: 8.9 x 3.8 x 4.2 cm Right Kidney: No hydronephrosis or masses seen Left Kidney: anechoic area seen medially measuring 1.4 x 1.1cm Bladder: not seen due to pt not prepping and excessive bowel gas There is no evidence for hydronephrosis at this point in time. No nephrolithiasis is seen. No jim s are identified. The urinary bladder is anechoic. IMPRESSION: As above [facility] Zuly Feng, , 09/24/2024 2:30 PM
== END | disposition home or self-care (01) ==
LOC: RADUSWWP 13:50
PROVIDERS: ATTEND Family Medicine
DX: N18.32 Chronic kidney disease, stage 3b (principal)
CPT/HCPCS: 76770